=== PATIENT | female | born 1950 | race African-American/Black ===

== ENCOUNTER → 2017-03-21 | Outpatient (CLI) | payer OTHER ==
[~2017-03-21] VITALS: Ht 149.9 cm; Wt 67.1 kg
[~2017-03-21] MED LIST: ALPRAZOLAM 0.0.25 M1 PO; ALPRAZOLAM PO; ALPRAZOLAM1 MG PO; AMBIEN 10 MG TA10 MG PO; ATENOLOL 50MG T50 M1 PO; ATENOLOL-CHLOR1 EACH PO; BISACODYL SUPP10 MG RECTAL; CARBAMAZEPINE200 M2 PO; CATHFLO ACT2 MG/VIA1 IV PUSH; CITRATE OF MAG296 ML PO; CLONAZEPAM 1 MG1 M1; COLACE100 MG PO; CYCLOBENZAPRINE5 MG PO; DOXEPIN 50MG CA50 M1 PO; DOXEPIN 50MG CA50 MG PO; FAMOTIDINE20 MG PO; FLEXERIL PO; IBUPROFEN 400400 M2 PO; INDAPAMIDE2.5 MG PO; INDOMETHACIN 5050 M1 PO; KLOR-CON 1010 MEQ PO; LIPITOR40 MG PO; LOPRESSOR25 PO; LOPRESSOR50 PO; MEDROLDOSEPACK PO; NORCO 10-325 T1 EACH PO; NORCO 5-325 TA1 EACH PO; NORVASC 5 MG TAB5 MG PO; NORVASC5 MG PO; POTASSIUM CHLO20 ME2 PO; PRAVACHOL40 MG PO; PROTONIX40 M1 PO; PROTONIX40 M2 PO; SEROQUEL 100 M100 M1 PO; SIMETHICON CHEW80 M1 PO; SIMVASTATIN5 MG; SODIUM CHLORID100 M4 IV; TOPROL XL50 MG PO; ZOFRAN ODT4 MG PO; ZOLOFT 50 MG TA50 M1 PO; ZOLOFT100 MG PO
--- NOTE | ~2017-03-21 | HPC ---
[facility] [address] [place] [address] PAIN MANAGEMENT CONSULTATION Name: CELINE KIRKPATRICK [facility] [id number] Admission: 03/21/17 Attend Phys: Yariel Flynn MD Discharge: Date of : 54 Report #: [id number] THIS REPORT FOR: //name// CC: Yariel Cota MD DATE OF SERVICE: 03/21/2017 CHIEF COMPLAINT: Bilateral leg pain with pain in the front thigh area. HISTORY OF PRESENT ILLNESS: The patient is a 67-year-old female who has been referred to the Pain Clinic for evaluation. The patient states that she has been having pain and discomfort in her back with pain radiating down into her legs. She has undergone epidural steroid injections in the past and gleaned significant benefits from these. She denies any bowel or bladder dysfunction at this juncture. She has noted worsening of her pain after tripping over a curb and falling. She was told that she has sciatica. The patient rates her pain as 6-7/10 at this juncture. Pain is worse when she starts moving, particularly on her right leg. Pain is somewhat improved when she lies down. She describes it as constant and sharp. PAST MEDICAL HISTORY: 1. Diabetes. 2. Borderline hypertension. 3. Hyperlipidemia. 4. Depression. 5. GERD. 6. Legionnaire's disease. 7. Fever, tracheostomy induced coma 2001. 8. Ectopic at age 18. 9. Deep venous thrombosis in 2001. 10. Fracture, right foot. PAST SURGICAL HISTORY: Tracheostomy 2001 for Legionnaire's, ectopic age 18, right fallopian tube removal, back surgery x 2. CURRENT MEDICATIONS: Protonix 40 mg daily, Flexeril 10 mg b.i.d., [place] 10/325 one q.8h. p.r.n., Norvasc 5 mg daily, metoprolol 50 mg b.i.d., alprazolam 1 mg t.i.d., doxepin 50 mg at bedtime, Ambien 10 mg p.r.n. insomnia, carbamazepine 200 mg b.i.d. anticonvulsant, Seroquel 100 mg helps to control fluctuating mood. ALLERGIES: No known drug allergies. 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 Smokes cigarettes 1 pack per day, has been smoking since age 20. Denies use of [address] [place] [address] PAIN MANAGEMENT CONSULTATION Name: CELINE KIRKPATRICK [facility] [id number] Admission: 03/21/17 Attend Phys: Yariel Flynn MD Discharge: Date of : 54 Report #: [id number] alcoholic beverages. REVIEW OF SYSTEMS: Questionnaire in the chart indicates fever, night sweats, fatigue, wears glasses, depression, insomnia, diabetes, cold intolerance, anemia. LABORATORY DATA: MRI of the lumbar spine dated 10/23/2015 reveals: 1. L2-L3 broad-based left foraminal disk bulge noted. Ligamentum flavum, mild to moderate thickening. Bilateral mild to moderate facet arthropathy is noted, greatest on the left side with osteophyte spurring further narrowing the foramen. Moderate to severe left neural foraminal narrowing is noted. The right neural foramen is patent. Spinal cord shows narrowing of the left side, which may be effaced exiting the L3 nerve root. 2. L3-L4 ohvc-jv-nqmjsaag broad-based disk bulge, moderate ligamentum flavum thickening, glckxyqx-st-oqtw facet arthropathy. Mild right neural foraminal narrowing. Moderate left neural foraminal narrowing. No spinal canal narrowing. 3. L4-L5 right paracentral disk sequestration with disk fragment extending up along the right epidural space. Studies available of the L3-L4 neural foramen. 4. Moderate ligamentum flavum thickening noted. 5. Vuurashf-at-gdqmec right-sided facet arthropathy is noted. 6. Moderate left facet arthropathy is noted. 7. Severe right neural foraminal stenosis is noted. 8. Moderate left neural foraminal stenosis is noted. Spinal canal narrowing is noted with an AP diameter of 7 mm. 9. L5-S1. No disk bulge, no ligamentum flavum thickening. Gnlk-mf-jtwrmlrm facet arthropathy is noted, right greater than left. No neural foraminal stenosis. Spinal canal, no spinal narrowing. PHYSICAL EXAMINATION: Blood pressure 134/65, pulse 81, respiratory rate 16, room air saturation is 100, height 4 feet 11 inches, weight 148 pounds, BMI is 29. The patient has not fallen in the last 3 months. She does have pain and discomfort in the lower portion of her back with pain radiating down into the right aspect of her leg around into the right knee area in the L3-L4 distribution. This coincides with the MRI findings. RECOMMENDATIONS: We discussed treatment options with the patient. Risks and benefits of the procedure were again reviewed. Possible complications were discussed. The patient states she has undergone epidural steroid injections in the past and gleaned benefits from these. The risks which include but are not limited to infection, headache, bleeding, nerve damage, increased muscle soreness were discussed. The patient will return to the clinic after precertification by her insurance company at which time she will undergo an epidural steroid injection to help quell the pain and discomfort she is [facility] [address] [place] [address] PAIN MANAGEMENT CONSULTATION Name: CELINE KIRKPATRICK Room #: REG [facility] MNishaR.#: [id number] Admission: 03/21/17 Attend Phys: Yariel Flynn MD Discharge: Date of : 54 Report #: [id number] experiencing. We would like to thank you for letting us participate in her care. We hope she continues to improve. <ELECTRONICALLY SIGNED> By: Yariel Flynn MD 03/22/17 0945 [id number] [id number] Yariel Flynn MD /PMT
[2017-03-21 13:31] VITALS: BP 134/65
== END ==
LOC: PAIN 07:04
DX: M48.061 Spinal stenosis, lumbar region without neurogenic claudication (principal); M46.86 Other specified inflammatory spondylopathies, lumbar region; M46.87 Other specified inflammatory spondylopathies, lumbosacral region; M51.26 Other intervertebral disc displacement, lumbar region; E11.9 Type 2 diabetes mellitus without complications; R03.0 Elevated blood-pressure reading, without diagnosis of hypertension; E78.5 Hyperlipidemia, unspecified; F17.200 Nicotine dependence, unspecified, uncomplicated; K21.9 Gastro-esophageal reflux disease without esophagitis; Z98.890 Other specified postprocedural states

== ENCOUNTER → 2017-03-23 | Outpatient (CLI) | payer OTHER ==
[~2017-03-23] VITALS: Ht 149.9 cm; Wt 68.5 kg
--- NOTE | ~2017-03-23 | HPC ---
[facility] [place] [address] PAIN MANAGEMENT CONSULTATION Name: CELINE KIRKPATRICK Room #: REG [facility] DonnaNishaJamesNisha#: [id number] Admission: 03/23/17 Attend Phys: Yariel Flynn MD Discharge: Date of : 54 Report #: [id number] THIS REPORT FOR: //name// CC: Yariel Cota DATE OF SERVICE: 03/23/2017 FOLLOWUP HISTORY: The patient is a 67-year-old female who has been seen in the pain clinic because of lumbar radiculopathy. She returns today for treatment. She has been precerted by her insurance company to proceed. She is coming in for treatment. PHYSICAL EXAMINATION: VITAL SIGNS: Blood pressure is 133/75, pulse 110, respiratory rate 18, room air saturation 98%. Height is 4 feet 11, weight 151 pounds, BMI is 30. She has not fallen since we saw her last. Complains of pain and discomfort, which radiates down into her right leg in the L3-L4 distribution. She notes some numbness and tingling in this area. She has noticed that there may be some decrease in muscle strength there and noted some wasting of the muscle in this area. She would like to proceed with an epidural steroid injection. IMPRESSION: 1. Lumbar radiculopathy. 2. Diabetes. 3. Borderline hypertension. 4. Hyperlipidemia. 5. Depression. 6. Gastroesophageal reflux disease. 7. History of Legionnaire's disease. 8. History of deep venous thrombosis in 2001. RECOMMENDATIONS: We discussed treatment options with the patient. Risks and benefits of an epidural steroid injection were again reviewed. Possible complications which could include but are not limited to infection, increased muscle soreness, headache, bleeding, nerve trauma and increased pain were discussed. The patient elects to proceed. PROCEDURE NOTE: The patient was placed in the prone position. Fluoroscopy was used to identify the L3-L4 interspace. This area had been sterile with Betadine and infiltrated with 0.25% bupivacaine. Total of 80 mg Depo-Medrol, 40 mg triamcinolone and 2 mL of 0.25% bupivacaine was injected. The patient's pain decreased from 7-0 at the time of discharge. We will follow up in the future as [facility] [address] [place] [address] PAIN MANAGEMENT CONSULTATION Name: CELINE KIRKPATRICK Room #: REG [facility].#: [id number] Admission: 03/23/17 Attend Phys: Yariel Flynn MD Discharge: Date of : 54 Report #: [id number] needed. We would like to thank you for letting us participate in her care. We hope she continues to improve. By: 1612 0100 Yariel Flynn MD /RONI
[2017-03-23 10:55] VITALS: BP 133/75
== END | disposition home or self-care (01) ==
LOC: PAIN 07:42
DX: M54.16 Radiculopathy, lumbar region (principal); E11.9 Type 2 diabetes mellitus without complications; I10 Essential (primary) hypertension; E78.5 Hyperlipidemia, unspecified; F32.89 Other specified depressive episodes; K21.9 Gastro-esophageal reflux disease without esophagitis; F17.210 Nicotine dependence, cigarettes, uncomplicated; Z87.01 Personal history of pneumonia (recurrent); Z86.718 Personal history of other venous thrombosis and embolism; Z88.6 Allergy status to analgesic agent; Z79.899 Other long term (current) drug therapy; Z98.890 Other specified postprocedural states; Z79.891 Long term (current) use of opiate analgesic

== ENCOUNTER → 2017-05-16 | Outpatient (CLI) | payer OTHER ==
[~2017-05-16] VITALS: Ht 149.9 cm; Wt 70.2 kg
[~2017-05-16] MED LIST changes: +PERCOCET 7.5-31 EACH PO; +PERCOCET PO
--- NOTE | ~2017-05-16 | HPC ---
[facility] [place] [address] PAIN MANAGEMENT CONSULTATION Name: CELINE KIRKPATRICK Room #: REG [facility]..#: [id number] Admission: 05/16/17 Attend Phys: Yariel Flynn MD Discharge: Date of : 54 Report #: [id number] THIS REPORT FOR: //name// CC: Yariel Cota MD DATE OF SERVICE: 05/16/2017 CHIEF COMPLAINT: Low back pain is going down into both buttocks and legs. FOLLOWUP HISTORY: The patient is a 67-year-old female who has been seen in the pain clinic because of lumbar radiculopathy. She has undergone epidural steroid injection. She reported a improvement in her pain and discomfort as a result of that. She now has noticed that her pain has started to return. It is increased to the level of 8. It is radiating down into both buttocks and to the level of her knees. As you may recall, she tripped and fell off a curb and noticed a worsening of her pain in July of 2016. Epidural steroid injections in the past were beneficial. The last injection that she had was helpful as well. She denies any new trauma, any new bowel or bladder complaints. ALLERGIES: No known drug allergies. MEDICATIONS: Review of current medications, Protonix 40 mg daily, Flexeril 10 mg b.i.d., [place] 10/325 mg one p.o. q. 8 hours p.r.n., Norvasc 5 mg daily, metoprolol 50 mg b.i.d., alprazolam 1 mg t.i.d., doxepin 50 mg at bedtime, Ambien 10 mg p.r.n. insomnia, carbamazepine 200 mg b.i.d./anticonvulsant, and Seroquel 100 mg helps control fluctuating mood. PHYSICAL EXAMINATION: GENERAL: The patient is a 67-year-old female, appears her stated age. The patient is alert and oriented x 3. Speech is normal. HEENT: Head is atraumatic, normocephalic. Extraocular eye muscles intact, hearing within normal limits. Denies nasal congestion or problems. Moist buccal membranes. NECK: Without JVD or bruits. BACK: Mid back without evidence of significant scoliosis, kyphosis, or lordosis. The patient has pain and discomfort in the lower portion of her back in the L4-L5 distribution. ABDOMEN: Nontender. The patient has a long ventral scar, which is well healed. Bowel sounds present. She has pain and discomfort radiating down into the L4-L5 distribution bilaterally. EXTREMITIES: Upper extremity strength 5/5 in the major muscle groups without neurologic changes. Muscle strength is judged to be 5/5 for the major muscle groups of lower extremity. [facility] [address] [place] [address] PAIN MANAGEMENT CONSULTATION Name: CELINE KIRKPATRICK [facility] #: [facility] [id number] Admission: 05/16/17 Attend Phys: Yariel Flynn MD Discharge: Date of : 54 Report #: [id number] IMPRESSION: 1. Lumbar radiculopathy in the L4-L5 distribution, which has improved in the past with epidural steroid injection. 2. Borderline hypertension. 3. Hyperlipidemia. 4. Depression. 5. Gastroesophageal reflux disease. 6. Legionnaire's disease history. 7. Tracheostomy after coma in 2001. 8. Ectopic age 62. 9. Deep venous thrombosis in 2001. 10. Fracture of the right foot. PAIN CLINIC ASSESSMENT: 1. The patient is not being treated for rheumatoid arthritis and osteoarthritis in low back area: 2. Height 4 feet 11 inches, weight 154 pounds, and BMI is 31. 3. Vital Signs: Blood pressure 161/81, pulse 94, respiratory rate 18, and room air saturation 97%. 4. Pain intensity 11/09. 5. Fall risk. The patient has not fallen since we saw her last. Has not fallen in the last 3 months. 6. The patient is not on a blood thinner. 7. The patient is being treated for hypertension. 8. Opioid therapy. The patient is currently taking hydrocodone 10/325 p.r.n. for back pain. 9. Risk assessment tool: The patient is at a low risk with a score of 1. 10. Functional assessment tool 34/70 in regards to general activity, mood, walking ability, normal work, relationships with others, sleep, and enjoyment of life. 11. Recreational drug use: The patient denies use of recreational drugs. 12. Tobacco: The patient smokes 1 pack of cigarettes per day, has been smoking since age 20. 13. Alcohol use. The patient denies use of alcoholic beverages. RECOMMENDATIONS: We discussed the treatment options with the patient. Risks and benefits of an epidural steroid injection were again reviewed. Possible complications were discussed. We explained that use of tobacco can worsen back pain and back problems. We would recommend that the patient decrease use of tobacco. We have discussed the possible complications of an epidural steroid injections, which could include, but are not limited to infection, increased muscle soreness, headache, bleeding, increased muscle pain, or trauma. The patient would like to proceed. PROCEDURE NOTE: The patient was taken to the procedure room. She was assisted in getting on the examination table. She was placed in the prone position. Her [address] [place] [address] PAIN MANAGEMENT CONSULTATION Name: CELINE KIRKPATRICK Room #: REG [facility]#: [id number] Admission: 05/16/17 Attend Phys: Yariel Flynn MD Discharge: Date of : 54 Report #: [id number] back was sterilely prepped with Betadine. Fluoroscopy AP and lateral viewing was used to target the appropriate area. At L3-4, 0.25% bupivacaine was infiltrated. A 17-gauge Tuohy with loss of resistance technique was used to gain access to the epidural space. There was no CSF, heme or paresthesia. Total of 80 mg Depo-Medrol, 40 mg of triamcinolone, and 2 mL of 0.25% bupivacaine was injected. The patient tolerated the procedure well. There were no complications. She remained in the pain clinic for an appropriate amount of time. A Band-Aid was placed in the incision site. There was no evidence of bleeding. She will follow up in the future as needed. We would like to thank you for letting us to participate in her care. We hope she continues to improve. <ELECTRONICALLY SIGNED> By: Yariel Flynn MD 06/13/17 1426 0933 2317 Yariel Flynn MD /PMT
[2017-05-16 09:45] VITALS: BP 161/81
== END ==
LOC: PAIN 06:41
DX: M54.16 Radiculopathy, lumbar region (principal); I10 Essential (primary) hypertension; E78.4 Other hyperlipidemia; F32.9 Major depressive disorder, single episode, unspecified; K21.9 Gastro-esophageal reflux disease without esophagitis; A48.1 Legionnaires' disease; Z93.0 Tracheostomy status; Z86.718 Personal history of other venous thrombosis and embolism; Z88.5 Allergy status to narcotic agent; Z87.81 Personal history of (healed) traumatic fracture

== ENCOUNTER → 2017-08-08 | Outpatient (CLI) | payer OTHER ==
[~2017-08-08] VITALS: Ht 149.9 cm; Wt 68.9 kg
[~2017-08-08] MED LIST changes: -PERCOCET 7.5-31 EACH PO; -PERCOCET PO
--- NOTE | ~2017-08-08 | HPC ---
[facility] [place] [address] PAIN MANAGEMENT CONSULTATION Name: CELINE KIRKPATRICK [facility] [id number] Admission: 08/08/17 Attend Phys: Yariel Flynn MD Discharge: Date of : 54 Report #: [id number] THIS REPORT FOR: //name// CC: Yariel Cota MD DATE OF SERVICE: 08/08/2017 CHIEF COMPLAINT: The injections have been helpful, but the pain is really bad today. FOLLOWUP HISTORY: The patient is a 67-year-old female, who has been seen in the pain clinic because of lumbar radiculopathy. She has undergone epidural steroid injections. She has gleaned benefits from these. She has noticed that her pain and discomfort in the L3-L4 area in the anterior portion of her thighs has worsened. She rates her pain as a 9/10. She has noticed a gradual onset of pain. She has noted some tripping over a curb. We have discussed the epidural steroid injection situation. We explained that one can get approximately 6 epidural steroid injections during the course of a year. She states her pain is still so severe at this juncture, she would like to proceed with another injection. She has had no bowel or bladder dysfunction. Continues to try to stay active. Notes that the pain continues to be quite problematic, particularly down in the right leg with some pain radiating into the anterior portion of her thigh. ALLERGIES: No known drug allergies. CURRENT MEDICATIONS: Protonix 40 mg daily, Flexeril 10 mg b.i.d., [place] 10/325 one p.o. every 8 hours p.r.n. pain, Norvasc 5 mg daily, metoprolol 50 mg b.i.d., alprazolam 1.5 mg t.i.d., doxepin 50 mg at bedtime, Ambien 10 mg p.o. p.r.n. insomnia, carbamazepine 200 mg b.i.d./anticonvulsant and Seroquel 100 mg helps control fluctuating mood. PAIN CLINIC ASSESSMENT: 1. The patient states she has not been treated for osteoarthritis or rheumatoid arthritis. 2. Height 4 feet 11 inches, weight 152 pounds, BMI is 30. 3. VITAL SIGNS: Blood pressure 147/82, pulse 97, respiratory rate 14, room air saturations 100%. Pain intensity 10. 4. Fall risk. The patient has not fallen in the last 3 months. 5. Blood thinner. The patient is not on a blood thinner. 6. History of hypertension. The patient is currently being treated for hypertension. 7. Opioid therapy greater than 6 weeks. The patient is not on a chronic opioid therapy [place] [address] PAIN MANAGEMENT CONSULTATION Name: CELINE KIRKPATRICK [facility] [id number] Admission: 08/08/17 Attend Phys: Yariel Flynn MD Discharge: Date of : 54 Report #: [id number] 8. Risk assessment tool. 04/04 regarding opioid risk, which is low. 9. Functional assessment tool, 45/70, indicating moderate impairment of life activities. 10. Recreational drug use. Denies use of recreational drugs. 11. Tobacco: The patient is an everyday smoker, smokes 5-10 cigarettes per day. 12. Alcohol: The patient denies frequent use of alcoholic beverages. PHYSICAL EXAMINATION: GENERAL: The patient is well-developed, well-nourished black female. She appears her stated age. The patient is alert and oriented x 3. Her speech is normal. Affect is appropriate, but somewhat sedate. HEENT: Normocephalic, atraumatic. Extraocular eye muscles intact. Sclerae nonicteric. Hearing within normal limits. The patient denies any oral problems. Mucous membranes are moist. NECK: Without adenopathy or JVD, no bruits. CHEST: Regular rate, normal S1, S2. ABDOMEN: Nontender, with a well-healed vertical scar. Bowel sounds present. CHEST: Clear to auscultation without rhonchi or rales. EXTREMITIES: Upper extremity judged to be 5/5 without sensory changes. Neurological findings are within normal limits. Muscle strength is judged to be 5/5. Lower extremity: The patient has pain and discomfort in the lower portion of her back with pain radiating down into her right posterior back and radiating to the anterior thigh in the L3-L4 distribution. IMPRESSION: 1. Lumbar radiculopathy in the L3-L4 distribution at this juncture. The patient has improved with epidural steroid injection and would like to proceed with another injection. 2. Borderline hypertension. 3. Hyperlipidemia. 4. Depression. 5. Gastroesophageal reflux. 6. History of Legionnaire's disease. 7. Tracheostomy after a coma in 2001. 8. History of ectopic . 9. Deep venous thrombosis in 2001. 10. Fracture of the right foot. RECOMMENDATIONS: We discussed treatment options with the patient. She continues to have pain and discomfort which she finds disquieting. She is unable to engage in activities of daily living because of this pain and discomfort. Epidural steroid injection in the past have been beneficial. She has returned to the pain clinic for an additional injection to help curtail her pain. We again discussed the possible complication of the procedure, which could include but are not limited to infection, increased muscle soreness, [facility] [address] [place] [address] PAIN MANAGEMENT CONSULTATION Name: CELINE KIRKPATRICK Room #: REG CL [facility].#: [id number] Admission: 08/08/17 Attend Phys: Yariel Flynn MD Discharge: Date of : 54 Report #: [id number] headache, bleeding, nerve damage, paralysis and the patient elects to proceed. The patient is aware that she can only get six injections during the course of the year, but feels that her pain is significant enough at this juncture, she would like to proceed. PROCEDURE NOTE: The patient was assisted into the procedure room. She was helped on to the fluoroscopy table. Her back was sterilely prepped with a Betadine solution. Fluoroscopy using an anterior, posterior as well as lateral approach was used to direct the needle at the L3-L4 interspace. This area was infiltrated with 0.25% bupivacaine. In the right lateral position, a 17-gauge Tuohy with loss of resistance technique was used to gain access to the epidural space. There was no CSF, heme or paresthesia. Total of 80 mg Depo-Medrol, 40 mg triamcinolone and 2 mL of 0.25% bupivacaine was injected. The patient tolerated the procedure well. There were no complications. She remained in the pain clinic for an appropriate amount of time. A total of 11 seconds fluoroscopy time was used. The patient's pain decreased from 9-0 at the time of discharge. She will follow up in the future as needed. <ELECTRONICALLY SIGNED> By: Yariel Flynn MD 08/10/17901 1623 51 Yariel Flynn MD /nt
[2017-08-08 10:08] VITALS: BP 147/82
== END | disposition home or self-care (01) ==
LOC: PAIN 07:33
DX: M54.16 Radiculopathy, lumbar region (principal); G89.29 Other chronic pain; I10 Essential (primary) hypertension; E78.5 Hyperlipidemia, unspecified; G32.89 Other specified degenerative disorders of nervous system in diseases classified elsewhere; K21.9 Gastro-esophageal reflux disease without esophagitis; Z86.718 Personal history of other venous thrombosis and embolism; Z87.59 Personal history of other complications of pregnancy, childbirth and the puerperium; Z86.19 Personal history of other infectious and parasitic diseases; Z93.0 Tracheostomy status; Z98.890 Other specified postprocedural states; Z79.899 Other long term (current) drug therapy; Z79.891 Long term (current) use of opiate analgesic

== ENCOUNTER 2017-09-08 13:13 | Emergency (ER) | payer OTHER ==
[~2017-09-08] VITALS: Ht 152.4 cm; Wt 67.1 kg
[2017-09-08] MEDS ORDERED: PERCOCET PO (14:45)
== END 2017-09-08 14:56 | disposition home or self-care (01) ==
LOC: ER 13:13
DX: M48.00 Spinal stenosis, site unspecified (principal); F17.210 Nicotine dependence, cigarettes, uncomplicated; Z88.5 Allergy status to narcotic agent

== ENCOUNTER 2020-06-21 15:01 | Emergency (ER) | payer OTHER ==
[~2020-06-21 15:01] MED LIST changes: +PERCOCET 7.5-31 EACH PO; +PERCOCET PO
[2020-06-21 15:14] VITALS: BP 147/68
== END 2020-06-21 20:10 | disposition left against medical advice (07) ==
LOC: ER 15:01
DX: M79.10 Myalgia, unspecified site (principal); Z53.21 Procedure and treatment not carried out due to patient leaving prior to being seen by health care provider

== ENCOUNTER → 2021-04-26 | Outpatient (CLI) | payer OTHER ==
[~2021-04-26] VITALS: Ht 149.9 cm; Wt 62.6 kg
[2021-04-26 11:00] VITALS: BP 148/59
--- NOTE | 2021-04-26 11:13 | NUR ---
Pain Clinic Assessment: 1. History of Osteoarthritis: Not Applicable History of Rheumatoid Arthritis: Not Applicable 2. Height: 4 ft. 11 in. 149.9 cm. Weight: 138.0 lb. oz. 62.596 kg. Patient's BMI: 27.9 3. Vital Signs: BP: 148/59 Pulse: 62 Resp: 14 Temp: 02 Sat: 100 ECG Mon: 4. Pain Intensity: 9 5. Fall Risk: Dizziness: N Needs help standing or walking: Y Fallen in the last 3 months: Y Fall risk comments: 6. Patient on Blood Thinner: None 7. History of Hypertension: Y 8. Opioid Therapy greater than 6 weeks: N Opiate Contract Signed: 9. Risk Assessment Tool Provided: LOW RISK 04/04 10. Functional Assessment Tool: 11. Recreational Drug Use: Never Drug Type: Tobacco Use: Current Every Day Smoker Tobacco Type: Cigarettes Amount or Packs/day: 1 PACK How Many Years: Alcohol Use: No Frequency: Quant:
--- NOTE | 2021-04-27 08:15 | HPC ---
[facility] [place] [address] PAIN MANAGEMENT CONSULTATION Name: CELINE KIRKPATRICK Room #: REG Jerry Nisha.#: [id number] Admission: 04/26/21 Attend Phys: Spencer Cortes DO Discharge: Date of : 54 Report #: [id number] THIS REPORT FOR: cc: René Cota MD, Steven A. MD Johnson, James E. DO ~ cc: Kaylen Castaneda MD DATE OF SERVICE: 04/26/2021 REFERRING PHYSICIAN: Dr. Kaylen Castaneda, Neurosurgeon CHIEF COMPLAINT: Low back pain, bilateral lower extremity pain with paresthesias. HISTORY OF PRESENT ILLNESS: As you know, the patient is a 71-year-old female reporting longstanding history of low back pain, bilateral lower extremity pain, which began in 2018. The patient has had symptoms prior to that where she underwent an L4-L5 decompression with spinous process fusion in 10/2017. Apparently, this was done with Dr. Ramses Michele. The patient is a very poor historian and I am having difficulty obtaining most of the information from the patient today. I am bringing the majority of her history from the medical record. The patient has sought further evaluation through Neurosurgery per the request of her primary care physician, Dr. René Cota. The patient was seen by Dr. Kaylen Castaneda on 03/16/2021 advised that surgical options may be necessary, but they would recommend more conservative treatment. Apparently at that time, the patient was seeing a pain management physician, but this patient was advised that she would not be a candidate for epidural injections per that physician. She has been trialing conservative treatment utilizing [id number] medications, rest, relaxation and prescription therapy in hopes of improving symptoms. She reports pain that is beginning in the low back belt line area and radiates down the thighs. Due to lack of improvement, conservative treatment options and prior to any surgical considerations, she was sent to our clinic to trial epidural injections. The patient reports today her pain is constant. She describes the pain as more of a shooting, sharp, stabbing, numbness and tingling when describing pain. She is unable to provide a pain score today. She has a daily average of pain increased, but cannot provide a amount of pain that she is experiencing are 1-10 scale nor can she provided as the worst pain has been. She indicates pain is exacerbated with bending and lifting improves with lying down. She has been referred to our service to discuss the possibility of undergoing lumbar epidural injection under fluoroscopic guidance. PAST MEDICAL HISTORY: 1. Diabetes mellitus type 2. 2[place] [address] PAIN MANAGEMENT CONSULTATION Name: CELINE KIRKPATRICK Room #: REG VERENICE Ramirez#: [id number] Admission: 04/26/21 Attend Phys: Spencer Cortes DO Discharge: Date of : 54 Report #: [id number] 3. Osteoarthritis. 4. Gastrointestinal disease. 5. GERD. 6. Anxiety disorder. 7. Depression. 8. Anemia. 9. Hyperlipidemia. 10. Tobacco habituation. PAST SURGICAL HISTORY: 1. L4-L5 decompression with spinous process fixation in 2018. 2. ORIF of an ankle. SOCIAL HISTORY: The patient smoked 1 pack tobacco per day. She has done so for 54 years. She denies IV or illicit drug use. Denies any chronic alcohol use. She is retired, retiring about 10 years ago. She is not in litigation in regards to pain. She is not receiving disability income or Workmen's compensation coverage. She is unaccompanied today. REVIEW OF SYSTEMS: 1. Positive for night sweats, fatigue and weakness, frequent and recurrent headaches, wearing corrective eyewear, blurred and double vision, sore throat with voice changes, shortness of breath with walking, lying flat, frequent and recurrent coughs secondary tobacco habituation. 2. Loss of appetite, peptic ulcer disease. 3. Painful urination, GERD, incontinence and dribbling to urine, rash and itching, lightheadedness and dizziness, numbness and tingling sensations, depression, insomnia, diabetes mellitus type 2, heat and cold intolerance and phlebitis. All other review of systems negative per 12-point review of systems other than those listed in history of present illness. Pain impact score 45/70, severe interference of daily activities secondary to pain. IMAGING: There is no imaging available to us at this appointment, though the patient indicates that she has had imaging done at [facility]. We will attempt to obtain that information. PQRS: The patient has known arthritic changes of the lumbar spine, bilateral hips and knees. No rheumatoid arthritis. She is placing pain intensity today up to as high as 9/10. She is a fall risk and has had multiple falls in the last 3 months. She is utilizing a roller walker for ambulation. She is not on blood thinners, but is treated for hypertension. She is on no opioid medications based on her reports. She has a moderate risk for opioid addiction secondary to her continued addiction to tobacco smoking. Functional assessment is 45/70, severe interference of daily activities secondary to pain. [facility] [address] [place] [address] PAIN MANAGEMENT CONSULTATION Name: CELINE KIRKPATRICK [id number] Admission: 04/26/21 Attend Phys: Spencer Cortes DO Discharge: Date of : 54 Report #: [id number] PHYSICAL EXAMINATION: VITAL SIGNS: Blood pressure 140/59, pulse of 62, respiratory rate 14 and unlabored. The patient 100% on room air. Height 4 feet 11 inches tall, weight 138 pounds, BMI calculated 27.9. GENERAL: Well-developed, well-nourished, well-hydrated 71-year-old female appearing stated age. She is a poor historian. She is placing pain around 9/10. HEENT: Normocephalic, atraumatic. Pupils are round. She does smell of tobacco smoke. She is wearing a mask in compliance with COVID-19 regulations. LUNGS: Decreased breath sounds bilaterally. There is a prolonged expiratory phase. No wheezing, rhonchi or rales. CARDIOVASCULAR: Regular. No appreciable gallop, no rub. ABDOMEN: Soft. EXTREMITIES: Show no clubbing, no cyanosis. No appreciable edema. MUSCULOSKELETAL: Lower extremity strength appears symmetrical 5/5. No focal deficits. She is intact to light touch from L1 through S2 dermatomes. Deep tendon reflexes are 1+/4 at patella bilaterally and 1+/4 at Achilles bilaterally. Straight leg raising is negative in the seated position and negative in the supine position. Station is noted to be loss of lordotic curvature with a hyperlordotic changes of the thoracic spine, loss of lordotic curvature of the lumbar spine. She is able to heel walk, but has difficulty with toe walk and requires assistance. She has a shortened gait based on the assessment, but not antalgic. ASSESSMENT: 1. Symptomatic lumbar radiculopathy. 2. Lumbar spinal stenosis. 3. Lumbosacral spondylosis with radiculopathy. 4. Lumbar degeneration. 5. Failed lumbar spine surgery. PLAN: 1. Based on today's physical exam and the history the patient has provided, the description the patient uses in regards to pain as well as location of symptoms, it would appear she is suffering from chronic and recurrent lumbar radiculopathy. The patient has sought evaluation through her primary care physician who has trialed medication management without benefit. She was ultimately sent on to Neurosurgery who advised the patient that surgical options may be necessary, but they wish to trial more conservative approach with lumbar epidural injections and the patient was subsequently referred to our clinic. We discussed with the patient that we wish to obtain her MRI and review before we will be willing to look towards the epidural injections. I wished to review that MRI to confirm the pathology would be amenable to an epidural injection. The patient is agreeable with that plan. We plan to see the patient back in followup visit once we have achieved any [place] [address] PAIN MANAGEMENT CONSULTATION Name: CELINE KIRKPATRICK Room #: REG VERENICE Ramirez#: [id number] Admission: 04/26/21 Attend Phys: Spencer Cortes DO Discharge: Date of : 54 Report #: [id number] green party payer and have had a chance to review the MRI of the lumbar spine. We will then plan to have the patient undergo an epidural injection. We will begin the authorization process and establish contact with the diagnostic imaging studies facility, so that we can obtain the results. 2. No medication changes made at today's visit. The patient will continue current medical therapy as prior prescribed. 3. Plan to see the patient back in followup visit once we have achieved authorization for the patient to undergo lumbar epidural injection under fluoroscopic guidance. At that time, we will review the patient's MRI and discuss those findings and determine whether or not that injection would be recommended to be completed. 4. We wish to thank Dr. Kaylen Castaneda for the referral of the patient to our clinic. We will keep you apprised of response to treatment as we address lumbar radicular symptoms. Again, we wish to thank you for the opportunity to see this patient in consultation. <ELECTRONICALLY SIGNED> By: Spencer Cortes DO 04/27/21 0815 [id number] Spencer Cortes DO /nt
== END ==
LOC: PAIN 04-12 14:14
PROVIDERS: ATTEND Anesthesiology Pain Medicine
DX: M51.16 Intervertebral disc disorders with radiculopathy, lumbar region (principal); M47.27 Other spondylosis with radiculopathy, lumbosacral region; M48.061 Spinal stenosis, lumbar region without neurogenic claudication; M96.1 Postlaminectomy syndrome, not elsewhere classified; M79.661 Pain in right lower leg; M79.662 Pain in left lower leg; I10 Essential (primary) hypertension; E11.9 Type 2 diabetes mellitus without complications; K21.9 Gastro-esophageal reflux disease without esophagitis; E78.5 Hyperlipidemia, unspecified; Z72.0 Tobacco use

== ENCOUNTER → 2021-05-03 | Outpatient (CLI) | payer OTHER ==
[~2021-05-03] VITALS: Ht 149.9 cm; Wt 63.4 kg
--- NOTE | ~2021-05-03 | HPC ---
[facility] [place] [address] PAIN MANAGEMENT CONSULTATION Name: CELINE KIRKPATRICK Room #: REG [facility]..#: [id number] Admission: 05/03/21 Attend Phys: Spencer Cortes DO Discharge: Date of : 54 Report #: [id number] THIS REPORT FOR: cc: René Cota MD, Steven A. MD Johnson, James E. DO ~ cc: Kaylen Castaneda MD DATE OF SERVICE: 05/03/2021 CHIEF COMPLAINT: Low back pain, bilateral lower extremity pain with paresthesias. HISTORY OF PRESENT ILLNESS: As you know, the patient is a 71-year-old female reporting longstanding history of low back pain, bilateral lower extremity pain, which began in 2019. She has undergone L4-L5 decompression with spinal fusion in 10/2017. This did not provide much in the way of improvement. She has sought evaluation through Neurosurgery seeing Dr. Kaylen Castaneda on 03/16/2021, advised that surgical options might be necessary, but trial of conservative treatment. We saw the patient in consultation per the request of Dr. Castaneda on 04/26/2021. The patient was diagnosed with lumbar radiculopathy secondary to failed lumbar spine surgery and provided today's appointment to undergo lumbar epidural injection as authorization had to be obtained. We received that authorization. The patient returns for the first in the series of lumbar epidural injections. REPORTED ALLERGIES: CODEINE. CURRENT MEDICATIONS: Pantoprazole, cyclobenzaprine, hydrocodone, amlodipine, alprazolam, doxepin, zolpidem, carbamazepine, quetiapine. SOCIAL HISTORY: The patient reports she is a smoker, 1 pack of tobacco per day. She has done so for 54 years. Denies IV or illicit drug use. Denies any chronic alcohol use. She is retired, retired about 10 years ago, unaccompanied today. IMAGING: No new imaging is available. PQRS: The patient has known arthritic changes of lumbar spine, bilateral hips and knees. No rheumatoid arthritis. She is placing pain intensity today again at 9/10. She is a fall risk and has had multiple falls in the last 3 months. She is not utilizing any type of ambulatory device. She is on no blood thinners, but is treated for hypertension, though poorly controlled blood pressure noted again today. She is on opioids, has a low opioid addiction potential based on assessment tool, though continues to smoke, which places her at a higher risk for opioid addiction than our assessment tool can detect. Pain impact remains high at 40/70. [address] [address] PAIN MANAGEMENT CONSULTATION Name: CELINE KIRKPATRICK Room #: REG [facility].#: [id number] Admission: 05/03/21 Attend Phys: Spencer Cortes DO Discharge: Date of : 54 Report #: [id number] PHYSICAL EXAMINATION: VITAL SIGNS: Blood pressure 164/96, pulse is 60, respiratory rate 16 and unlabored. The patient 100% on room air. Height 4 feet 11 inches tall, weight 139.8 pounds, BMI calculated 28.2. GENERAL: Well-developed, well-nourished, well-hydrated 71-year-old female appearing stated age, pain is rated today at 9/10. HEENT: Normocephalic, atraumatic. Pupils are round. She is wearing a mask in compliance with COVID-19 regulations. EXTREMITIES: Show no clubbing, no cyanosis, no edema. MUSCULOSKELETAL: Well-healed surgical scar over the lumbar spine. Seated straight leg raising is negative. Supine straight leg raising is negative. Deep tendon reflexes remain 1+/4 patella and Achilles. ASSESSMENT: 1. Symptomatic lumbar radiculopathy. 2. Lumbosacral spondylosis with radiculopathy. 3. Spinal stenosis of lumbar spine. 4. Lumbar degeneration. 5. Failed lumbar spine surgery. PLAN: 1. The patient returns today in followup visit requesting to undergo lumbar epidural injection under fluoroscopic guidance. We have received authorization for the patient to undergo the procedure. She has been advised of the risks and the benefits of the procedure itself. These risks include but are not necessarily limited to bleeding, bruising, infection, worsening of pain, no relief of pain, also risk of temporary or permanent muscle weakness, temporary or permanent nerve damage, possible paralysis, and . The patient states understood and wished to proceed. 2. No medication changes made at today's visit. The patient will continue current medical therapy as prior prescribed. 3. Plan to see the patient back in followup visit on an as needed basis for the next in the series of epidural injections. Based on Medicare guidelines, the next available injection is 3 months from today. PROCEDURE NOTE DESCRIPTION OF PROCEDURE: Lumbar epidural steroid injection under fluoroscopic guidance. After obtaining written consent, the patient was taken back to fluoroscopy suite, placed in prone position with pillow under abdomen to decrease lumbar lordosis. Skin overlying lumbosacral area then prepped and draped in aseptic fashion. The lumbar intervertebral spaces were identified by AP fluoroscopy. Skin and subcutaneous tissue overlying target site injection anesthetized with [address] [address] PAIN MANAGEMENT CONSULTATION Name: CELINE KIRKPATRICK Room #: REG CLI [facility]#: [id number] Admission: 05/03/21 Attend Phys: Spencer Cortes DO Discharge: Date of : 54 Report #: [id number] mL of 1% lidocaine. A 20-gauge 3-1/2-inch Tuohy needle advanced under fluoroscopic guidance towards the epidural space using a paramedian approach. Epidural space identified using loss of resistance to air technique. After negative aspiration for heme or cerebrospinal fluid, 1 mL of Omnipaque injected. A lumbar epidurogram was confirmed using both AP and lateral fluoroscopy. After negative aspiration for heme or cerebrospinal fluid, 5 mL of a solution containing 2 mL 40 mg per mL 80 mg total triamcinolone along with 3 mL of lidocaine 1% injected slowly. Needle retracted penitentiary flushed with 1 mL of 1% lidocaine and removed. Sterile bandage placed over injection site. No new motor deficits present in the lower extremities following procedure. The patient tolerated the procedure well, carefully escorted to recovery room in stable condition. No apparent complications. After meeting discharge criteria, the patient discharged home. By: [id number] Spencer Cortes DO /nt
[2021-05-03 10:46] VITALS: BP 164/96
--- NOTE | 2021-05-03 11:09 | NUR ---
Pain Clinic Assessment: 1. History of Osteoarthritis: Not Applicable History of Rheumatoid Arthritis: Not Applicable 2. Height: 4 ft. 11 in. 149.9 cm. Weight: 139.8 lb. oz. 63.413 kg. Patient's BMI: 28.2 3. Vital Signs: BP: 164/96 Pulse: 60 Resp: 16 Temp: 02 Sat: 100 ECG Mon: 4. Pain Intensity: 9 5. Fall Risk: Dizziness: N Needs help standing or walking: Y Fallen in the last 3 months: Y Fall risk comments: 6. Patient on Blood Thinner: None 7. History of Hypertension: Y 8. Opioid Therapy greater than 6 weeks: N Opiate Contract Signed: 9. Risk Assessment Tool Provided: LOW RISK 04/04 10. Functional Assessment Tool: 11. Recreational Drug Use: Never Drug Type: Tobacco Use: Current Every Day Smoker Tobacco Type: Cigarettes Amount or Packs/day: 10 ciggs How Many Years: Alcohol Use: No Frequency: Quant:
== END | disposition home or self-care (01) ==
LOC: PAIN 10:22
PROVIDERS: ATTEND Anesthesiology Pain Medicine
DX: M51.16 Intervertebral disc disorders with radiculopathy, lumbar region (principal); M47.27 Other spondylosis with radiculopathy, lumbosacral region; M48.061 Spinal stenosis, lumbar region without neurogenic claudication; M96.1 Postlaminectomy syndrome, not elsewhere classified; I10 Essential (primary) hypertension; M19.90 Unspecified osteoarthritis, unspecified site; F17.210 Nicotine dependence, cigarettes, uncomplicated; Z98.890 Other specified postprocedural states; Z79.899 Other long term (current) drug therapy; Z88.6 Allergy status to analgesic agent